=== PATIENT | male | born 1950 | race Caucasian/White ===

== ENCOUNTER → 2016-08-11 | Outpatient (CLI) | payer MEDICARE, BC ==
[2013-10-23 13:20] VITALS: BP 120/57
[~2016-08-11] MED LIST: LAMISIL AT JOCK IT1% TP; LISINOPRIL AND1 TAB PO; METOPROLOL TART50 MG PO; OMEPRAZOLE D/R20 MG PO
== END ==
LOC: LAB 08:21
DX: I10 Essential (primary) hypertension (principal); Z12.5 Encounter for screening for malignant neoplasm of prostate; K21.9 Gastro-esophageal reflux disease without esophagitis

== ENCOUNTER → 2016-09-10 | Outpatient (CLI) | payer MEDICARE, BC ==
[~2016-09-10] VITALS: Ht 177.8 cm; Wt 104.5 kg
[2016-09-10 14:52] VITALS: BP 159/81
== END ==
LOC: AMSURD 14:24
DX: R30.0 Dysuria (principal); Z00.00 Encounter for general adult medical examination without abnormal findings; R06.09 Other forms of dyspnea; I10 Essential (primary) hypertension

== ENCOUNTER → 2016-09-14 | Outpatient (CLI) | payer MEDICARE, BC ==
[2016-09-10 14:52] VITALS: BP 159/81
== END ==
LOC: RAD 08:20
DX: R06.09 Other forms of dyspnea (principal)

== ENCOUNTER → 2016-10-16 | Outpatient (CLI) | payer MEDICARE, BC ==
[2016-09-10 14:52] VITALS: BP 159/81
== END ==
LOC: CARDREHAB 10-09 10:14
DX: R06.09 Other forms of dyspnea (principal); R13.13 Dysphagia, pharyngeal phase; I10 Essential (primary) hypertension; Z87.891 Personal history of nicotine dependence
CPT/HCPCS: A9500

== ENCOUNTER → 2017-03-15 | Outpatient (CLI) | payer MEDICARE, BC ==
[~2017-03-15] VITALS: Ht 180.3 cm; Wt 104.5 kg
[~2017-03-15] MED LIST changes: +NATURAL IRON65 MG PO; +PHARMASSURE FO0.4 MG PO; +PREVACID15 M1 PO; +ULTRAM50 M1 PO; +VITAMIN C500 MG PO
[2017-03-15 09:43] LABS: EOS # 0.5 (0.04-0.40); HEMATOCRIT 36.8 % (42.0-52.0); HEMOGLOBIN 12.2 g/dL (13.5-18.0); LYMPH# 1.3 (1.50-4.00); MEAN CELL VOLUME 94 fl (78-100); MEAN CORPUSCULAR HEMOGLOBIN 31 pg (27-31); MEAN CORPUSCULAR HGB CONC 33 g/dL (33-37); MEAN PLATELET VOLUME 9.6 fl (7.4-10.4); MONO # 0.6 (0.20-0.80); NEU # 4.1 (1.40-6.50); PLATELET COUNT 324 K/mm3 (130-400); RED BLOOD COUNT 3.92 M/mm3 (4.20-5.60); RED CELL DISTRIBUTION WIDTH 12.6 % (11.5-14.5); WHITE BLOOD COUNT 6.6 K/mm3 (4.8-10.8)
[2017-03-15 09:48] LABS: PROTHROMBIN TIME 9.6 SECONDS (9.0-12.0)
[2017-03-15 09:50] LABS: EOS % 6.9 % (0.0-4.0)
[2017-03-15 10:05] VITALS: BP 140/78
[2017-03-15 10:37] LABS: ALBUMIN 4.9 g/dL (3.5-5.0); BUN/CREATININE RATIO 21.3 (6.0-26.0); CALCIUM 10.3 mg/dL (8.4-10.2); TOTAL BILIRUBIN 0.6 mg/dL (0.2-1.3); TOTAL PROTEIN 7.7 g/dL (6.3-8.2)
[2017-03-15 11:17] LABS: URINE APPEARANCE CLEAR; URINE BILIRUBIN NEGATIVE (NEGATIVE); URINE BLOOD NEGATIVE (NEGATIVE); URINE COLOR YELLOW; URINE GLUCOSE NEGATIVE (NEGATIVE); URINE KETONE NEGATIVE (NEGATIVE); URINE LEUKOCYTE ESTERASE NEGATIVE (NEGATIVE); URINE MUCUS PRESENT (NOT PRESENT); URINE NITRATE NEGATIVE (NEGATIVE); URINE PROTEIN(semi-quant) TRACE mg/dL (NEGATIVE); URINE UROBILINOGEN NORMAL (NORMAL); URINE WBC 0-1 /hpf (0-3)
== END ==
LOC: AMSURD 09:14
PROVIDERS: Family Medicine
DX: Z01.818 Encounter for other preprocedural examination (principal); K57.30 Diverticulosis of large intestine without perforation or abscess without bleeding; I10 Essential (primary) hypertension

== ENCOUNTER → 2017-03-26 | Outpatient (CLI) | payer MEDICARE, BC ==
[2017-03-15 10:05] VITALS: BP 140/78
== END ==
LOC: PT
DX: Z01.818 Encounter for other preprocedural examination (principal); M17.11 Unilateral primary osteoarthritis, right knee

== ENCOUNTER 2017-04-02 12:00 | Inpatient (IN) | payer MEDICARE, BC ==
[~2017-04-02] VITALS: Ht 180.3 cm; Wt 90.0 kg
[~2017-04-02 12:00] MED LIST changes: +HYDROCHLOROTHIA1 T14 PO; +METOPROLOL TART75 MG PO; +PRILOSEC 20MG20 MG PO
[2017-04-02] MEDS ORDERED: NORCO 325 MG-7.1 TAB PO (12:01)
[2017-04-02] MEDS ORDERED: ROXICODONE 55 MG/TAB PO (12:01)
[2017-04-02] MEDS ORDERED: COLACE100 M1 PO (12:02)
[2017-04-02] MEDS ORDERED: TYLENOL EXTRA500 M2 PO (12:02)
[2017-04-02 13:28] VITALS: BP 109/63
[2017-04-02 15:30] LABS: HEMATOCRIT 26.2 % (42.0-52.0); HEMOGLOBIN 8.5 g/dL (13.5-18.0); MEAN CELL VOLUME 95 fl (78-100); MEAN CORPUSCULAR HEMOGLOBIN 31 pg (27-31); MEAN CORPUSCULAR HGB CONC 32 g/dL (33-37); MEAN PLATELET VOLUME 9.8 fl (7.4-10.4); PLATELET COUNT 263 K/mm3 (130-400); RED BLOOD COUNT 2.75 M/mm3 (4.20-5.60); RED CELL DISTRIBUTION WIDTH 12.8 % (11.5-14.5); WHITE BLOOD COUNT 8.6 K/mm3 (4.8-10.8)
[2017-04-02 16:03] LABS: ALBUMIN 3.4 g/dL (3.5-5.0); BUN/CREATININE RATIO 20.7 (6.0-26.0); CALCIUM 8.3 mg/dL (8.4-10.2); POTASSIUM 3.9 mmol/L (3.6-5.0); TOTAL BILIRUBIN 0.3 mg/dL (0.2-1.3); TOTAL PROTEIN 6.5 g/dL (6.3-8.2)
[2017-04-02 16:26] LABS: HYPOCHROMIA 2+; LYMPHOCYTE 5 % (20-51); MONOCYTE 10 % (3-10); NEUTROPHILS 84 % (42-75)
[2017-04-02 16:58] LABS: URINE APPEARANCE CLEAR; URINE BILIRUBIN NEGATIVE (NEGATIVE); URINE BLOOD NEGATIVE (NEGATIVE); URINE COLOR YELLOW; URINE GLUCOSE NEGATIVE (NEGATIVE); URINE KETONE NEGATIVE (NEGATIVE); URINE LEUKOCYTE ESTERASE TRACE (NEGATIVE); URINE NITRATE NEGATIVE (NEGATIVE); URINE PROTEIN(semi-quant) TRACE mg/dL (NEGATIVE); URINE UROBILINOGEN NORMAL (NORMAL)
[2017-04-02 18:04] VITALS: BP 119/81
[2017-04-02 20:11] VITALS: BP 138/78
[2017-04-03 06:17] VITALS: BP 130/71
[2017-04-03 19:09] VITALS: BP 133/57
[2017-04-04 07:17] VITALS: BP 118/61
[2017-04-04 18:13] VITALS: BP 130/72
[2017-04-05 06:25] VITALS: BP 132/82
[2017-04-05 06:42] LABS: MEAN CELL VOLUME 96 fl (78-100); MEAN CORPUSCULAR HEMOGLOBIN 31 pg (27-31); MEAN CORPUSCULAR HGB CONC 32 g/dL (33-37); MEAN PLATELET VOLUME 8.7 fl (7.4-10.4); PLATELET COUNT 332 K/mm3 (130-400); RED BLOOD COUNT 2.48 M/mm3 (4.20-5.60); RED CELL DISTRIBUTION WIDTH 12.4 % (11.5-14.5); WHITE BLOOD COUNT 6.5 K/mm3 (4.8-10.8)
[2017-04-05 06:58] LABS: HEMATOCRIT 23.9 % (42.0-52.0); HEMOGLOBIN 7.7 g/dL (13.5-18.0)
[2017-04-05 07:00] LABS: BUN/CREATININE RATIO 19.8 (6.0-26.0); CALCIUM 8.4 mg/dL (8.4-10.2); POTASSIUM 3.7 mmol/L (3.6-5.0)
[2017-04-05 07:12] LABS: LYMPHOCYTE 12 % (20-51); MONOCYTE 9 % (3-10); NEUTROPHILS 76 % (42-75)
[2017-04-05 18:18] VITALS: BP 122/72
[2017-04-06 06:23] VITALS: BP 114/65
[2017-04-06 18:36] VITALS: BP 129/63
[2017-04-07 06:08] LABS: HEMATOCRIT 24.1 % (42.0-52.0); MEAN PLATELET VOLUME 8.6 fl (7.4-10.4); RED BLOOD COUNT 2.51 M/mm3 (4.20-5.60); WHITE BLOOD COUNT 7.9 K/mm3 (4.8-10.8)
[2017-04-07 06:20] LABS: HEMOGLOBIN 7.9 g/dL (13.5-18.0)
[2017-04-07 06:45] VITALS: BP 134/66
[2017-04-07 18:43] VITALS: BP 138/59
[2017-04-08 06:26] VITALS: BP 129/66
[2017-04-08 18:18] VITALS: BP 163/73
[2017-04-09 06:08] VITALS: BP 108/58
[2017-04-09 18:42] VITALS: BP 127/55
[2017-04-10 06:09] VITALS: BP 125/64
[2017-04-10 19:09] VITALS: BP 137/63
[2017-04-11 06:47] VITALS: BP 124/73
[2017-04-11 18:35] VITALS: BP 127/65
[2017-04-12 06:30] VITALS: BP 129/70
[2017-04-12 06:51] LABS: HEMATOCRIT 29.2 % (42.0-52.0); HEMOGLOBIN 9.2 g/dL (13.5-18.0); MEAN PLATELET VOLUME 8.5 fl (7.4-10.4); RED BLOOD COUNT 3.02 M/mm3 (4.20-5.60); RED CELL DISTRIBUTION WIDTH 12.4 % (11.5-14.5); WHITE BLOOD COUNT 7.9 K/mm3 (4.8-10.8)
[2017-04-12 07:02] LABS: BUN/CREATININE RATIO 23.3 (6.0-26.0); CALCIUM 9.5 mg/dL (8.4-10.2); POTASSIUM 4.3 mmol/L (3.6-5.0)
[2017-04-12 18:13] VITALS: BP 130/63
[2017-04-13 06:29] VITALS: BP 130/73
[2017-04-13] MEDS ORDERED: METOPROLOL TAR100 M1 PO (12:26)
[2017-04-13] MEDS ORDERED: ELIQUIS5 MG PO (12:26)
[2017-04-13] MEDS ORDERED: FERROUS SU325 MG/TAB PO (12:26)
[2017-04-13] MEDS ORDERED: ROXICODONE 55 MG/TAB PO (12:28)
[2017-04-13] MEDS ORDERED: PRILOSEC 20MG20 MG PO (12:29)
[2017-04-13] MEDS ORDERED: COLACE100 M1 PO (12:29)
[2017-04-13] MEDS ORDERED: ZESTORETIC 10-1 EACH PO (12:30)
== END 2017-04-13 12:51 | disposition home health service (06) | DRG 561 ==
LOC: MED/SURG 12:00
PROVIDERS: ADMIT Family Medicine
DX: Z47.1 Aftercare following joint replacement surgery (principal); Z96.651 Presence of right artificial knee joint; K21.9 Gastro-esophageal reflux disease without esophagitis; I48.91 Unspecified atrial fibrillation; I10 Essential (primary) hypertension; R15.9 Full incontinence of feces; Z88.0 Allergy status to penicillin

== ENCOUNTER → 2017-04-21 | Outpatient (CLI) | payer MEDICARE, BC ==
[2017-04-13 06:29] VITALS: BP 130/73
[~2017-04-21] MED LIST changes: +COLACE100 M1 PO; +COUMADIN 5MG5 MG/TAB PO; +ELIQUIS5 MG PO; +FERROUS SU325 MG/TAB PO; +METOPROLOL TAR100 M1 PO; +NORCO 325 MG-7.1 TAB PO; +ROXICODONE 55 MG/TAB PO; +TYLENOL EXTRA500 M2 PO; +ZESTORETIC 10-1 EACH PO
[2017-04-21 11:40] LABS: HEMOGLOBIN 10.8 g/dL (13.5-18.0); MEAN PLATELET VOLUME 9.2 fl (7.4-10.4); RED BLOOD COUNT 3.51 M/mm3 (4.20-5.60); RED CELL DISTRIBUTION WIDTH 12.8 % (11.5-14.5); WHITE BLOOD COUNT 7.1 K/mm3 (4.8-10.8)
[2017-04-21 11:46] LABS: PROTHROMBIN TIME 23.9 SECONDS (9.0-12.0)
[2017-04-21 11:47] LABS: ALBUMIN 4.4 g/dL (3.5-5.0); BUN/CREATININE RATIO 18.5 (6.0-26.0); CALCIUM 9.9 mg/dL (8.4-10.2); POTASSIUM 4.4 mmol/L (3.6-5.0); TOTAL BILIRUBIN 0.3 mg/dL (0.2-1.3); TOTAL PROTEIN 7.8 g/dL (6.3-8.2)
== END ==
LOC: LAB 11:10
PROVIDERS: Family Medicine
DX: I48.91 Unspecified atrial fibrillation (principal); I10 Essential (primary) hypertension; M17.9 Osteoarthritis of knee, unspecified

== ENCOUNTER → 2017-04-29 | Outpatient (CLI) | payer MEDICARE, BC ==
[2017-04-13 06:29] VITALS: BP 130/73
[2017-04-29 10:41] LABS: PROTHROMBIN TIME 50.9 SECONDS (9.0-12.0)
== END ==
LOC: LAB 09:28
PROVIDERS: Family Medicine
DX: I48.91 Unspecified atrial fibrillation (principal); Z88.0 Allergy status to penicillin

== ENCOUNTER → 2017-04-29 | Outpatient (CLI) | payer MEDICARE, BC ==
[~2017-04-29] VITALS: Ht 175.3 cm; Wt 86.4 kg
[2017-04-29 14:10] VITALS: BP 122/60
== END ==
LOC: LAB 13:57
DX: I48.91 Unspecified atrial fibrillation (principal); Z88.0 Allergy status to penicillin
CPT/HCPCS: J3430

== ENCOUNTER → 2017-04-30 | Outpatient (CLI) | payer MEDICARE, BC ==
[2017-04-29 14:10] VITALS: BP 122/60
[2017-04-30 09:25] LABS: PROTHROMBIN TIME 23.9 SECONDS (9.0-12.0)
== END ==
LOC: LAB 08:45
PROVIDERS: Family Medicine
DX: I48.91 Unspecified atrial fibrillation (principal); Z88.0 Allergy status to penicillin

== ENCOUNTER → 2017-05-06 | Outpatient (CLI) | payer MEDICARE, BC ==
[2017-04-29 14:10] VITALS: BP 122/60
[2017-05-06 10:19] LABS: PROTHROMBIN TIME 21.2 SECONDS (9.0-12.0)
== END ==
LOC: LAB 09:54
PROVIDERS: Family Medicine
DX: I48.91 Unspecified atrial fibrillation (principal); Z88.0 Allergy status to penicillin

== ENCOUNTER → 2017-05-13 | Outpatient (CLI) | payer MEDICARE, BC ==
[2017-04-29 14:10] VITALS: BP 122/60
== END ==
LOC: RAD 18:00
DX: I08.0 Rheumatic disorders of both mitral and aortic valves (principal); R93.1 Abnormal findings on diagnostic imaging of heart and coronary circulation

== ENCOUNTER 2017-06-10 10:00 | Outpatient (RCR) | payer MEDICARE, BC ==
[2017-04-29 14:10] VITALS: BP 122/60
== END 2017-06-10 10:30 | disposition home or self-care (01) ==
LOC: PT 10:00
DX: Z47.1 Aftercare following joint replacement surgery (principal); Z96.651 Presence of right artificial knee joint
CPT/HCPCS: G8978-GP; G8979-GP

== ENCOUNTER → 2017-08-17 | Outpatient (CLI) | payer MEDICARE, BC ==
[2017-04-29 14:10] VITALS: BP 122/60
[2017-08-17 07:59] LABS: EOS # 0.4 (0.04-0.40); HEMATOCRIT 37.7 % (42.0-52.0); HEMOGLOBIN 12.5 g/dL (13.5-18.0); LYMPH# 1.2 (1.50-4.00); MEAN CELL VOLUME 92 fl (78-100); MEAN CORPUSCULAR HEMOGLOBIN 31 pg (27-31); MEAN CORPUSCULAR HGB CONC 33 g/dL (33-37); MEAN PLATELET VOLUME 8.9 fl (7.4-10.4); MONO # 0.6 (0.20-0.80); NEU # 4.9 (1.40-6.50); PLATELET COUNT 255 K/mm3 (130-400); WHITE BLOOD COUNT 7.1 K/mm3 (4.8-10.8)
[2017-08-17 08:07] LABS: BUN/CREATININE RATIO 21.3 (6.0-26.0); CALCIUM 8.9 mg/dL (8.4-10.2); POTASSIUM 4.3 mmol/L (3.6-5.0)
[2017-08-17 08:08] LABS: EOS % 5.1 % (0.0-4.0)
[2017-08-17 08:21] LABS: URINE APPEARANCE HAZY; URINE BILIRUBIN NEGATIVE (NEGATIVE); URINE BLOOD TRACE (NEGATIVE); URINE COLOR YELLOW; URINE GLUCOSE NEGATIVE (NEGATIVE); URINE KETONE NEGATIVE (NEGATIVE); URINE LEUKOCYTE ESTERASE NEGATIVE (NEGATIVE); URINE NITRATE NEGATIVE (NEGATIVE); URINE PROTEIN(semi-quant) TRACE mg/dL (NEGATIVE); URINE UROBILINOGEN NORMAL (NORMAL)
[2017-08-17 08:25] LABS: PROTHROMBIN TIME 32.2 SECONDS (9.0-12.0)
== END ==
LOC: LAB 07:40
PROVIDERS: Family Medicine
DX: M17.9 Osteoarthritis of knee, unspecified (principal); I48.91 Unspecified atrial fibrillation; I10 Essential (primary) hypertension; K21.9 Gastro-esophageal reflux disease without esophagitis; K57.30 Diverticulosis of large intestine without perforation or abscess without bleeding; R31.9 Hematuria, unspecified

== ENCOUNTER → 2017-09-10 | Outpatient (CLI) | payer MEDICARE, BC ==
[2017-04-29 14:10] VITALS: BP 122/60
[~2017-09-10] MED LIST changes: +COUMADIN 4MG4 MG/TAB PO; +OXYCODONE PO
== END ==
LOC: CARDREHAB 08:48 → CARDLAB 13:00
DX: Z01.810 Encounter for preprocedural cardiovascular examination (principal); R06.02 Shortness of breath; R07.89 Other chest pain
CPT/HCPCS: A9500

== ENCOUNTER 2017-09-17 11:50 | Inpatient (IN) | payer MEDICARE, BC ==
[~2017-09-17] VITALS: Ht 175 cm; Wt 96.0 kg
[~2017-09-17 11:50] MED LIST changes: -COUMADIN 4MG4 MG/TAB PO; -OXYCODONE PO
[2017-09-17 12:07] VITALS: BP 144/78
[2017-09-17 13:46] VITALS: BP 144/78
[2017-09-17 15:30] LABS: HEMATOCRIT 29.1 % (42.0-52.0); HEMOGLOBIN 9.4 g/dL (13.5-18.0); MEAN CELL VOLUME 94 fl (78-100); MEAN CORPUSCULAR HEMOGLOBIN 30 pg (27-31); MEAN CORPUSCULAR HGB CONC 32 g/dL (33-37); PLATELET COUNT 241 K/mm3 (130-400); RED CELL DISTRIBUTION WIDTH 13.6 % (11.5-14.5); WHITE BLOOD COUNT 9.6 K/mm3 (4.8-10.8)
[2017-09-17 15:33] LABS: BUN/CREATININE RATIO 19.6 (6.0-26.0); CALCIUM 8.3 mg/dL (8.4-10.2); POTASSIUM 3.7 mmol/L (3.6-5.0)
[2017-09-17 16:32] LABS: LYMPHOCYTE 9 % (20-51); MONOCYTE 11 % (3-10); NEUTROPHILS 80 % (42-75)
[2017-09-17 17:21] LABS: PROTHROMBIN TIME 13.6 SECONDS (9.0-12.0)
[2017-09-17 18:48] VITALS: BP 154/70
[2017-09-17 19:08] LABS: URINE APPEARANCE HAZY; URINE COLOR YELLOW
[2017-09-17 19:09] LABS: URINE BILIRUBIN NEGATIVE (NEGATIVE); URINE BLOOD TRACE (NEGATIVE); URINE GLUCOSE NEGATIVE (NEGATIVE); URINE KETONE NEGATIVE (NEGATIVE); URINE LEUKOCYTE ESTERASE NEGATIVE (NEGATIVE); URINE NITRATE NEGATIVE (NEGATIVE); URINE PROTEIN(semi-quant) TRACE mg/dL (NEGATIVE); URINE UROBILINOGEN NORMAL (NORMAL); URINE WBC 0-1 /hpf (0-3)
[2017-09-17 20:38] VITALS: BP 129/64
[2017-09-18 06:23] VITALS: BP 144/70
[2017-09-18 18:12] VITALS: BP 121/61
[2017-09-19 06:40] VITALS: BP 134/71
[2017-09-19 09:27] LABS: HEMATOCRIT 28.1 % (42.0-52.0); HEMOGLOBIN 9.3 g/dL (13.5-18.0); MEAN PLATELET VOLUME 8.9 fl (7.4-10.4); RED BLOOD COUNT 3.02 M/mm3 (4.20-5.60); WHITE BLOOD COUNT 7.1 K/mm3 (4.8-10.8)
[2017-09-19 11:33] LABS: PROTHROMBIN TIME 14.3 SECONDS (9.0-12.0)
[2017-09-19 18:45] VITALS: BP 131/78
[2017-09-20 06:21] VITALS: BP 114/61
[2017-09-20 19:10] VITALS: BP 144/74
[2017-09-21 05:59] VITALS: BP 139/69
[2017-09-21 19:15] VITALS: BP 155/81
[2017-09-22 07:08] VITALS: BP 136/72
[2017-09-22 18:21] VITALS: BP 142/69
[2017-09-23 06:30] LABS: PROTHROMBIN TIME 19.2 SECONDS (9.0-12.0)
[2017-09-23 06:32] VITALS: BP 146/79
[2017-09-23 18:22] VITALS: BP 133/63
[2017-09-24 06:05] VITALS: BP 138/77
[2017-09-24 18:50] VITALS: BP 132/64
[2017-09-25 06:14] VITALS: BP 124/67
[2017-09-25 18:30] VITALS: BP 134/75
[2017-09-26 06:28] VITALS: BP 143/76
[2017-09-26 19:00] VITALS: BP 144/73
[2017-09-27 06:27] VITALS: BP 169/70
[2017-09-27 08:38] LABS: EOS # 0.2 (0.04-0.40); EOS % 3.5 % (0.0-4.0); HEMATOCRIT 32.1 % (42.0-52.0); HEMOGLOBIN 10.3 g/dL (13.5-18.0); MEAN CELL VOLUME 95 fl (78-100); MEAN CORPUSCULAR HEMOGLOBIN 31 pg (27-31); MEAN CORPUSCULAR HGB CONC 32 g/dL (33-37); MEAN PLATELET VOLUME 9.2 fl (7.4-10.4); MONO # 0.7 (0.20-0.80); NEU # 4.8 (1.40-6.50); RED BLOOD COUNT 3.37 M/mm3 (4.20-5.60); RED CELL DISTRIBUTION WIDTH 12.8 % (11.5-14.5); WHITE BLOOD COUNT 6.8 K/mm3 (4.8-10.8)
[2017-09-27 08:46] LABS: ALBUMIN 3.8 g/dL (3.5-5.0); BUN/CREATININE RATIO 19.4 (6.0-26.0); CALCIUM 9.1 mg/dL (8.4-10.2); POTASSIUM 4.5 mmol/L (3.6-5.0); TOTAL BILIRUBIN 0.6 mg/dL (0.2-1.3); TOTAL PROTEIN 7.3 g/dL (6.3-8.2)
[2017-09-27 08:50] LABS: PROTHROMBIN TIME 14.6 SECONDS (9.0-12.0)
[2017-09-27 09:09] LABS: PLATELET COUNT 531 K/mm3 (130-400)
[2017-09-27 18:07] VITALS: BP 172/77
[2017-09-28 06:20] LABS: PROTHROMBIN TIME 14.4 SECONDS (9.0-12.0)
[2017-09-28 06:22] VITALS: BP 106/63
[2017-09-28 18:53] VITALS: BP 128/60
[2017-09-29 06:23] VITALS: BP 116/75
[2017-09-29 09:42] LABS: PROTHROMBIN TIME 13.5 SECONDS (9.0-12.0)
[2017-09-29 18:33] VITALS: BP 112/59
[2017-09-30 06:12] VITALS: BP 108/74
[2017-09-30] MEDS ORDERED: COUMADIN 4MG4 MG/TAB PO (09:38)
[2017-09-30] MEDS ORDERED: OXYCODONE PO (09:46)
== END 2017-09-30 11:15 | disposition home health service (06) | DRG 561 ==
LOC: MED/SURG 11:50
PROVIDERS: Nurse Practitioner Primary Care; Physician Assistant; ADMIT Family Medicine
DX: Z47.1 Aftercare following joint replacement surgery (principal); Z96.652 Presence of left artificial knee joint; I10 Essential (primary) hypertension; I48.91 Unspecified atrial fibrillation; Z79.01 Long term (current) use of anticoagulants; K21.9 Gastro-esophageal reflux disease without esophagitis
CPT/HCPCS: J1650

== ENCOUNTER 2017-12-03 10:45 | Outpatient (RCR) | payer MEDICARE, BC ==
[~2017-12-03 10:45] MED LIST changes: +COUMADIN 4MG4 MG/TAB PO; +OXYCODONE PO
== END 2017-12-03 11:30 | disposition home or self-care (01) ==
LOC: PT 10:45
DX: Z47.1 Aftercare following joint replacement surgery (principal); Z96.652 Presence of left artificial knee joint
CPT/HCPCS: G8978-GP; G8979-GP

== ENCOUNTER → 2018-07-01 | Outpatient (CLI) | payer MEDICARE, BC ==
[2018-07-01 11:16] LABS: PROTHROMBIN TIME 45.3 SECONDS (9.0-12.0)
== END ==
LOC: LAB 09:51
PROVIDERS: Family Medicine
DX: I48.91 Unspecified atrial fibrillation (principal)

== ENCOUNTER → 2018-07-07 | Outpatient (CLI) | payer MEDICARE, BC ==
[2018-07-07 09:49] LABS: PROTHROMBIN TIME 25.6 SECONDS (9.0-12.0)
== END ==
LOC: LAB 09:05
PROVIDERS: Family Medicine
DX: I48.91 Unspecified atrial fibrillation (principal)

== ENCOUNTER 2018-08-16 12:59 | Emergency (ER) | payer MEDICARE, BC ==
[~2018-08-16] VITALS: Ht 175.3 cm; Wt 97.7 kg
[2018-08-16] MEDS ORDERED: WARFARIN SODIUM4 MG PO (13:50)
[2018-08-16] MEDS ORDERED: METOPROLOL SUCC50 M1 PO (13:50)
[2018-08-16] MEDS ORDERED: NITROGLYCERIN0.4 M1 SL (13:50)
[2018-08-16] MEDS ORDERED: AMIODARONE200 MG PO (13:51)
[2018-08-16] MEDS ORDERED: ISOSORBIDE30 MG PO (13:52)
[2018-08-16 14:05] LABS: EOS # 0.3 (0.04-0.40); HEMOGLOBIN 13.1 g/dL (13.5-18.0); LYMPH# 0.9 (1.50-4.00); MEAN CELL VOLUME 93 fl (78-100); MEAN CORPUSCULAR HEMOGLOBIN 31 pg (27-31); MEAN CORPUSCULAR HGB CONC 34 g/dL (33-37); MEAN PLATELET VOLUME 9.7 fl (7.4-10.4); MONO # 0.4 (0.20-0.80); NEU # 3.7 (1.40-6.50); PLATELET COUNT 216 K/mm3 (130-400); RED CELL DISTRIBUTION WIDTH 12.8 % (11.5-14.5); WHITE BLOOD COUNT 5.4 K/mm3 (4.8-10.8)
[2018-08-16 14:29] LABS: PROTHROMBIN TIME 20.8 SECONDS (9.0-12.0)
[2018-08-16 14:30] LABS: ALBUMIN 4.2 g/dL (3.4-4.8); CALCIUM 9.5 mg/dL (8.3-10.5); POTASSIUM 4.3 mmol/L (3.5-5.1); TOTAL BILIRUBIN 0.4 mg/dL (0.2-1.2); TOTAL PROTEIN 7.1 g/dL (6.2-8.1)
[2018-08-16 15:08] VITALS: BP 166/82
== END 2018-08-16 15:00 | disposition home or self-care (01) ==
LOC: ED 12:59
PROVIDERS: Nurse Practitioner Primary Care
DX: S00.83XA Contusion of other part of head, initial encounter (principal); S80.02XA Contusion of left knee, initial encounter; I48.91 Unspecified atrial fibrillation; I10 Essential (primary) hypertension; Z79.01 Long term (current) use of anticoagulants; Z88.0 Allergy status to penicillin; W01.0XXA Fall on same level from slipping, tripping and stumbling without subsequent striking against object, initial encounter; Y92.512 Supermarket, store or market as the place of occurrence of the external cause

== ENCOUNTER 2018-09-15 09:30 | Outpatient (RCR) | payer MEDICARE, BC ==
[~2018-09-15 09:30] MED LIST changes: +AMIODARONE200 MG PO; +ISOSORBIDE30 MG PO; +METOPROLOL SUCC50 M1 PO; +NITROGLYCERIN0.4 M1 SL; +WARFARIN SODIUM4 MG PO
== END 2018-09-15 10:00 | disposition still patient (30) ==
LOC: PT 09:30
DX: I48.91 Unspecified atrial fibrillation (principal); S00.511A Abrasion of lip, initial encounter; W19.XXXA Unspecified fall, initial encounter

== ENCOUNTER → 2018-12-07 | Outpatient (CLI) | payer MEDICARE, BC ==
[2018-12-07 09:06] LABS: EOS # 0.3 (0.04-0.40); HEMOGLOBIN 14.1 g/dL (13.5-18.0); LYMPH# 0.8 (1.50-4.00); MEAN CELL VOLUME 92 fl (78-100); MEAN CORPUSCULAR HEMOGLOBIN 31 pg (27-31); MEAN CORPUSCULAR HGB CONC 34 g/dL (33-37); MEAN PLATELET VOLUME 9.8 fl (7.4-10.4); MONO # 0.5 (0.20-0.80); NEU # 2.8 (1.40-6.50); PLATELET COUNT 238 K/mm3 (130-400); RED BLOOD COUNT 4.59 M/mm3 (4.20-5.60); RED CELL DISTRIBUTION WIDTH 12.7 % (11.5-14.5); WHITE BLOOD COUNT 4.4 K/mm3 (4.8-10.8)
[2018-12-07 09:43] LABS: EOS % 6.9 % (0.0-4.0)
[2018-12-07 09:44] LABS: CALCIUM 9.6 mg/dL (8.3-10.5); POTASSIUM 4.5 mmol/L (3.5-5.1)
== END ==
LOC: LAB 07:59
PROVIDERS: Internal Medicine Clinical Cardiac Electrophysiology
DX: I48.91 Unspecified atrial fibrillation (principal)

== ENCOUNTER → 2018-12-16 | Outpatient (CLI) | payer MEDICARE, BC ==
[2018-12-16 09:34] LABS: POTASSIUM 4.5 mmol/L (3.5-5.1)
[2018-12-16 09:35] LABS: PROTHROMBIN TIME 27.6 SECONDS (9.0-12.0)
[2018-12-16 09:36] LABS: CALCIUM 9.2 mg/dL (8.3-10.5)
== END ==
LOC: LAB 09:15
PROVIDERS: Family Medicine
DX: I12.9 Hypertensive chronic kidney disease with stage 1 through stage 4 chronic kidney disease, or unspecified chronic kidney disease (principal); N18.3 Chronic kidney disease, stage 3 (moderate); I48.91 Unspecified atrial fibrillation

== ENCOUNTER → 2019-03-20 | Outpatient (CLI) | payer MEDICARE, BC ==
[2019-03-20 10:41] LABS: PROTHROMBIN TIME 14.2 SECONDS (9.0-12.0)
== END ==
LOC: LAB 10:11
PROVIDERS: Family Medicine
DX: I48.91 Unspecified atrial fibrillation (principal)

== ENCOUNTER → 2019-07-17 | Outpatient (CLI) | payer MEDICARE, BC | LOC: LAB 08:57 | PROVIDERS: Family Medicine | DX: I48.91 Unspecified atrial fibrillation (principal) ==

== ENCOUNTER → 2019-09-04 | Outpatient (CLI) | payer MEDICARE, MEDICAID ==
[2019-09-04 09:40] LABS: ALBUMIN 4.1 g/dL (3.4-4.8)
[2019-09-04 09:41] LABS: CALCIUM 8.8 mg/dL (8.3-10.5); PROTHROMBIN TIME 21.8 SECONDS (9.0-12.0)
[2019-09-04 09:43] LABS: TOTAL PROTEIN 6.8 g/dL (6.2-8.1)
[2019-09-04 09:45] LABS: TOTAL BILIRUBIN 0.3 mg/dL (0.2-1.2)
== END ==
LOC: LAB 09:03
PROVIDERS: Family Medicine
DX: Z00.00 Encounter for general adult medical examination without abnormal findings (principal); I48.91 Unspecified atrial fibrillation; Z12.5 Encounter for screening for malignant neoplasm of prostate; H26.9 Unspecified cataract; M25.512 Pain in left shoulder; N18.3 Chronic kidney disease, stage 3 (moderate); K21.9 Gastro-esophageal reflux disease without esophagitis; I12.9 Hypertensive chronic kidney disease with stage 1 through stage 4 chronic kidney disease, or unspecified chronic kidney disease; K57.30 Diverticulosis of large intestine without perforation or abscess without bleeding

== ENCOUNTER 2019-09-06 09:30 | Outpatient (RCR) | payer MEDICARE, MEDICAID | END 2019-09-06 10:00 | disposition still patient (30) | LOC: PT 09:30 | DX: Z00.00 Encounter for general adult medical examination without abnormal findings (principal); I48.91 Unspecified atrial fibrillation; N18.3 Chronic kidney disease, stage 3 (moderate); I12.9 Hypertensive chronic kidney disease with stage 1 through stage 4 chronic kidney disease, or unspecified chronic kidney disease; H26.9 Unspecified cataract; K21.9 Gastro-esophageal reflux disease without esophagitis; K57.30 Diverticulosis of large intestine without perforation or abscess without bleeding; M25.512 Pain in left shoulder; G89.29 Other chronic pain ==

== ENCOUNTER → 2020-02-16 | Outpatient (CLI) | payer MEDICARE, MEDICAID | LOC: CARDLAB 01-26 10:09 → CARDREHAB 08:06 → CARDLAB 14:13 | DX: R07.89 Other chest pain (principal) | CPT/HCPCS: A9500 ==

== ENCOUNTER → 2020-02-26 | Outpatient (CLI) | payer MEDICARE, MEDICAID | LOC: VAS 16:38 | DX: R07.89 Other chest pain (principal) ==